=== PATIENT | female | born 1995 | race Caucasian/White ===

== ENCOUNTER 2024-09-28 21:49 | Emergency (ER) | payer SELFPAY ==
[~2024-09-28] VITALS: Ht 160 cm; Wt 60.0 kg
[2024-09-28 21:52] VITALS: BP 124/72; PULSE 76; RESP 16; TEMP 36.7; O2SAT 100
[2024-09-29] MEDS ORDERED: NAPR-1176 MT (02:45)
[2024-09-29] MEDS ORDERED: LIDO700A15 TP (02:45)
[2024-09-29 03:11] VITALS: TEMP 98.1
[2024-09-29] MEDS: ACETAMINOPHEN 325MG TABLET PO ONE (03:11)
== END 2024-09-29 03:17 | disposition home or self-care (01) ==
LOC: ER 21:49
DX: N94.6 Dysmenorrhea, unspecified (principal); E03.9 Hypothyroidism, unspecified; Z79.1 Long term (current) use of non-steroidal anti-inflammatories (NSAID)
CPT/HCPCS: 99283